=== PATIENT | male | born 1950 | race Caucasian/White ===

== ENCOUNTER 2016-12-27 15:19 | Inpatient (IN) | payer MEDICARE, BC ==
[~2016-12-27] VITALS: Ht 165.1 cm; Wt 82.5 kg
[2017-05-15] VITALS (10 sets, daily range): BP systolic 94–137; BP diastolic 57–79; PULSE 40–76; TEMP 97.5–99.3
[2017-05-15] MEDS ORDERED: ASPIRIN 81M81 MG/TA2 PO (07:54)
[2017-05-15] MEDS ORDERED: COREG 6.256.25 MG/TA PO (07:55)
[2017-05-15] MEDS ORDERED: NORCO 325 MG-51 TAB PO (07:55)
[2017-05-15] MEDS ORDERED: ZESTRIL2.5 MG PO (07:56)
[2017-05-15] MEDS ORDERED: FISH OIL 1000MG1 CAP PO (07:56)
[2017-05-15] MEDS ORDERED: LYCOPENE10 M2 PO (07:57)
[2017-05-15] MEDS ORDERED: ZOCOR5 MG PO (07:58)
[2017-05-15] MEDS ORDERED: NITROSTAT0.4 MG/TAB SL (07:58)
[2017-05-15] MEDS ORDERED: VIAGRA 25MG TAB25 MG PO (07:59)
[2017-05-15] MEDS ORDERED: VITAMINC1000TA PO (07:59)
[2017-05-15] MEDS ORDERED: FOLIC ACID0.4 MG PO (07:59)
[2017-05-15] MEDS ORDERED: FERROUS SU325 MG/TAB PO (08:00)
[2017-05-15] MEDS ORDERED: VITAMIN D 1001000 IU PO (08:02)
[2017-05-15] MEDS ORDERED: THE MEDICINE S200 M2 PO (08:03)
[2017-05-15] MEDS ORDERED: PROSCAR 5MG5 MG PO (08:15)
[2017-05-16 03:42] VITALS: BP 125/72; PULSE 81; TEMP 99.3
[2017-05-16 06:22] LABS: HEMATOCRIT 39.2 % (42.0-52.0); HEMOGLOBIN 13.5 g/dl (13.5-18.0)
[2017-05-16 07:32] VITALS: BP 111/68; PULSE 71; TEMP 98
[2017-05-16 11:45] VITALS: BP 132/67; PULSE 66; TEMP 98.2
[2017-05-16 15:49] VITALS: BP 162/82; PULSE 59; TEMP 97.8
[2017-05-16 20:33] VITALS: BP 128/70; PULSE 78; TEMP 97.5
[2017-05-17 04:13] VITALS: BP 124/80; PULSE 76; TEMP 98.8
[2017-05-17 06:04] LABS: HEMATOCRIT 39.2 % (42.0-52.0); HEMOGLOBIN 13.5 g/dl (13.5-18.0)
[2017-05-17 07:28] VITALS: BP 146/76; PULSE 72; TEMP 98.4
[2017-05-17] MEDS ORDERED: ASPI325T6 PO (07:28)
[2017-05-17] MEDS ORDERED: SENOKOT S 50 MG1 TAB PO (07:29)
[2017-05-17] MEDS ORDERED: NORCO 325 MG-7.1 TAB PO (07:30)
[2017-05-17 13:13] VITALS: BP 125/66; PULSE 93; TEMP 98.2
== END 2017-05-17 15:00 | disposition home or self-care (01) | DRG 470 ==
LOC: JCC 04-17 07:30
PROVIDERS: Orthopaedic Surgery
PROC: 0SRC0J9 Replacement of Right Knee Joint with Synthetic Substitute, Cemented, Open Approach (ICD-10-PCS; principal; 2017-05-15 11:25)
DX: M17.11 Unilateral primary osteoarthritis, right knee (principal); I25.2 Old myocardial infarction; Z95.5 Presence of coronary angioplasty implant and graft
CPT/HCPCS: A4315; A9284; C1713; C1776; J0690; J2250; J2405; J2704; J3010; J7120

== ENCOUNTER → 2017-05-04 | Outpatient (CLI) | payer MEDICARE, BC ==
[~2017-05-04] MED LIST: ASPI325T6 PO; ASPIRIN 81M81 MG/TA2 PO; COREG 6.256.25 MG/TA PO; FERROUS SU325 MG/TAB PO; FISH OIL 1000MG1 CAP PO; FOLIC ACID0.4 MG PO; LYCOPENE10 M2 PO; NITROSTAT0.4 MG/TAB SL; NORCO 325 MG-51 TAB PO; NORCO 325 MG-7.1 TAB PO; PROSCAR 5MG5 MG PO; SENOKOT S 50 MG1 TAB PO; THE MEDICINE S200 M2 PO; VIAGRA 25MG TAB25 MG PO; VITAMIN D 1001000 IU PO; VITAMINC1000TA PO; ZESTRIL2.5 MG PO; ZOCOR5 MG PO
== END ==
LOC: COL.LAB 15:01
DX: Z01.812 Encounter for preprocedural laboratory examination (principal)